=== PATIENT | female | born 1975 | race Caucasian/White ===

== ENCOUNTER 2019-02-13 09:44 | Outpatient (CLI) | payer OTHER ==
--- NOTE | 2019-02-14 08:54 | Mammography Report ---
Reason: SCREENING MAMMOGRAM FOR BREAST CANCER Procedure Date: 02/13/2019 Accession Number: [id number] / [id number] Procedure: LEONARD - Screening Mammo Dig Bilat CPT Code: FULL RESULT: EXAM: Screening Mammo Dig Bilat DATE: 02/13/2019 10:14 AM CLINICAL HISTORY: Screening encounter. History of nulliparity and early menses. Baseline examination. TECHNIQUE: (B) - Bilateral CC, laterally exaggerated CC, MLO views were obtained. COMPARISON: None PARENCHYMAL PATTERN: (D) - The breast(s) demonstrate(s) heterogeneously dense fibroglandular parenchyma. FINDINGS: In the lower outer breast is a hypodense well-circumscribed 3.0 x 2.1 x 2.6 cm mass which is partially obscured, approximately 8.5 cm from the nipple. There is no associated architectural distortion, suspicious calcification. This requires additional spot views, ideally with 3-D mammography as well as ultrasound characterization. There are no suspicious masses, calcifications, or areas of distortion in the left breast. IMPRESSION: Incomplete examination. BI-RADS category 0. RECOMMENDATION: ([facility]) - Additional views using both Mammography and Ultrasound recommended. Right breast lower outer quadrant. BI-RADS CATEGORY: (0) - Incomplete Examination - need additional evaluation. STANDARD QUALIFYING STATEMENTS: 1. This examination was not reviewed with the aid of Computer-Aided Detection (CAD). 2. A negative or benign imaging report should not preclude biopsy if clinically suspicious findings are present. 3. Dense breasts may obscure an underlying neoplasm. 4. This examination was reviewed without the aid of 3D breast imaging (tomosynthesis).
== END 2019-02-13 09:45 | disposition home or self-care (01) ==
LOC: DI 09:44
PROVIDERS: ATTEND Nurse Practitioner
DX: Z12.31 Encounter for screening mammogram for malignant neoplasm of breast (principal); R92.8 Other abnormal and inconclusive findings on diagnostic imaging of breast
CPT/HCPCS: 77067

== ENCOUNTER 2019-02-22 11:01 | Outpatient (CLI) | payer OTHER ==
--- NOTE | 2019-02-22 13:17 | Mammography Report ---
Reason: ABNORMAL MAMMOGRAM Procedure Date: 02/22/2019 Accession Number: [id number] / [id number] Procedure: LEONARD - Diag Special Views Dig RT CPT Code: FULL RESULT: EXAM: Diag Special Views Dig RT, Breast Unilateral Limited DATE: 02/22/2019 11:35 AM CLINICAL HISTORY: Follow-up abnormal mammogram 02/13/2019 COMPARISON: 02/13/2019 MAMMOGRAM: TECHNIQUE: (R) - Right additional spot compression and true lateral views. PARENCHYMAL PATTERN: (D) - The breasts demonstrate heterogeneously dense fibroglandular parenchyma bilaterally. FINDINGS: The previously described density in the posterior lateral right breast persists on additional views. RIGHT BREAST ULTRASOUND: TECHNIQUE: Targeted ultrasound was performed of the right breast in the area of clinical concern at 7 o'clock and 9 cm distance from the nipple. Color Doppler was employed as appropriate. FINDINGS: Corresponding to the mammographic abnormality in the 7:00 position 8 cm from the nipple is a hypoechoic well-circumscribed 2.9 x 1.8 x 0.9 cm avascular mass wider than it is tall most consistent with a fibroadenoma. IMPRESSION: Probably benign finding right breast BI-RADS 3. RECOMMENDATION: Six-month follow-up right breast ultrasound. BI-RADS CATEGORY: (3) - Probably Benign. STANDARD QUALIFYING STATEMENTS: 1. This examination was not reviewed with the aid of Computer-Aided Detection (CAD). 2. A negative or benign imaging report should not preclude biopsy if clinically suspicious findings are present. 3. Dense breasts may obscure an underlying neoplasm. 4. This examination was reviewed without the aid of 3D breast imaging (tomosynthesis).
== END 2019-02-22 11:02 | disposition home or self-care (01) ==
LOC: DI 11:01
PROVIDERS: ATTEND Nurse Practitioner
DX: R92.8 Other abnormal and inconclusive findings on diagnostic imaging of breast (principal)
CPT/HCPCS: 76642

== ENCOUNTER 2019-03-03 13:58 | Outpatient (CLI) | payer OTHER ==
[2019-03-03 14:24] LABS: BASOPHILS % (AUTO) 0.8 %; EOSINOPHILS # (AUTO) 0.1 10^3/uL (0.0-0.7); EOSINOPHILS % (AUTO) 2.6 %; HGB - HEMOGLOBIN 12.4 g/dL (12.0-16.0); LYMPHOCYTES # (AUTO) 2.1 10^3/uL (1.5-3.5); LYMPHOCYTES % (AUTO) 40.7 %; MEAN CORPUSCULAR HEMOGLOBIN 31.1 pg (27.0-31.0); MEAN CORPUSCULAR HGB CONC 32.7 g/dL (32.0-36.0); MEAN PLATELET VOLUME 9.5 fL (7.9-10.8); MONOCYTES # (AUTO) 0.4 10^3/uL (0.0-1.0); MONOCYTES % (AUTO) 8.3 %; NEUTROPHILS # (AUTO) 2.4 10^3/uL (1.5-6.6); NEUTROPHILS % (AUTO) 47.4 %; PLT - PLATELET COUNT 191 10^3/uL (130-450); RED BLOOD COUNT 3.99 10^6/uL (4.20-5.40); RED CELL DISTRIBUTION WIDTH 12.2 % (12.0-15.0); WHITE BLOOD COUNT 5.1 x10^3/uL (4.8-10.8)
[2019-03-03 14:40] LABS: % IRON SATURATION 12 % (20-50); IRON 42 ug/dL (28-170); TOTAL IRON BINDING CAPACITY 353 ug/dL (250-450); TRANSFERRIN 252 mg/dL (192-382)
[2019-03-03 14:52] LABS: THYROID STIMULATING HORMONE 1.15 uIU/mL (0.34-5.60)
[2019-03-03 14:54] LABS: FREE T4 (FREE THYROXINE) 0.85 ng/dL (0.58-1.64)
[2019-03-03 15:00] LABS: FERRITIN 18.7 ng/mL (11.0-306.8)
[2019-03-03 15:03] LABS: FOLATE 17.2 ng/mL (5.90 - >24.8)
== END 2019-03-03 13:59 | disposition home or self-care (01) ==
LOC: LAB 13:58
PROVIDERS: ATTEND Nurse Practitioner
DX: R53.83 Other fatigue (principal); E03.9 Hypothyroidism, unspecified
CPT/HCPCS: 36415; 82306; 82607; 82728; 82746; 83540; 84432; 84439; 84443; 84466; 84481; 85025; 86800

== ENCOUNTER 2019-12-12 12:38 | Outpatient (CLI) | payer OTHER ==
--- NOTE | 2019-12-12 13:24 | SLEEP CARE CONSULTATION ---
Information from patient questionnaire entered by Nereyda Shoemaker. I have reviewed and concur with the information entered by Nereyda Shoemaker. This document represents the service I personally performed and the decisions made by me, Meka Sim MD, [facility]. History of Present Illness Service Date and Time: 12/12/2019 1238 Reason for Visit: New patient Chief Complaint: reports: Unrefreshed sleep, Fatigue Duration of Symptoms: about 3.5 years Usual bedtime: 10:30-11 pm Time it takes to fall asleep: 5 min Snores at night: No Observed to quit breathing while asleep: No Sleeps alone due to snoring: No Number of times waking at night: 3 Reasons for waking at night: reports: Other (sometimes puppy, usually no reason) Toss, Turn, or Twitch while sleeping: Yes Recalls having dreams: Yes Usually gets out of bed at: 8 am Feels refreshed in the morning: No Morning headache: No Sleepy or fatigued during the day: Yes Ever fallen asleep while driving: Yes Takes day naps: No Dreams during day naps: No Prior sleep studies: No Additional HPI information: The patient is here with the complaint of fatigue for the past 3.5 years. She never feels like is getting enough sleep even though she gets 8 to 9 hours of sleep a night on the average. She takes melatonin at night. She reports having non-restorative sleep. She is not sleepy during the day, although she is taking Adderall 20 mg a day for ADD. Her weight crept up 30 lbs this year. Her does not report snoring or pauses in her breathing (he uses CPAP himself). - Parasomnia Symptoms Ever been unable to move upon waking from sleep: No Ever felt weak in the knees when startled or emotional: Yes Bothered by creepy, crawly, restless sensations in legs: No Problems with memory or concentration: Yes Subjective Initial [place] Sleepiness Scale score: 4 (in 2019) Past Medical History Past Medical History: reports: Hypothyroidism, Anxiety, Depression, Attention deficit Social History The patient's occupation is a [employer]. Patient is and lives in [place]. Have you smoked in the past 12 months: No Alcohol use: Yes Alcohol amount and frequency: 1 drink less than 1 time a month Caffeine use: Yes Caffeine amount and frequency: 2 cups of espresso Family History Family history of sleep disordered breathing: Yes Allergies and Home Medications Drug allergies reviewed: Yes Home medication list reviewed: Yes Review of Systems Weight gain over past 5 years: 30 Cardiovascular: denies: high blood pressure, palpitations, chest pain, irregular heart rate or pulse, leg or foot swelling, have to sleep sitting up, other Respiratory: denies: shortness of breath, wheeze, sputum production, chronic cough, other Gastrointestinal: denies: heartburn, difficulty swallowing, nausea, vomitting, diarrhea, abdominal pain, other Urinary: denies: incontinence, frequency, urgency, impotence, other Neurological: reports: headaches Psychiatric: reports: Attention Deficit Hyperactivity, anxiety, depression Ear/Nose/Throat: reports: wisdom teeth removed Endocrine: reports: thyroid disease, sluggishness, unexplained weakness Musculoskeletal: reports: neck pain, back pain, muscle pain or cramping Physical Exam Vital signs obtained and entered by: Exam was not performed in order to comply with the COVID-19 precautions Height: 5 ft 6 in Weight: 185 lb Body Mass Index: 29.8 BMI Classification: Overweight Impression and Plan IMPRESSION: 1. Fatigue, of unclear reason, not associated with excessive daytime sleepiness ([place] Sleepiness Scale score of only 4). A sleep study is the reasonable next step to see if there is/are sleep disrupting condition(s) such was sleep- disordered breathing. Narrow oropharynx and obesity are common predisposing factors for obstructive sleep apnea-hypopnea syndrome. I informed the patient of what the sleep studies involve and after some discussion, she agreed to proceed. Plan: 1. Schedule an in-laboratory polysomnography. 2. Attempt to lose weight. 5. Return in 1 to 2 weeks after the study to discuss results. Time Spent with Patient (minutes): 15
== END 2019-12-12 12:39 | disposition home or self-care (01) ==
LOC: SC 12:38
PROVIDERS: ATTEND Internal Medicine Pulmonary Disease
DX: R53.83 Other fatigue (principal); G47.8 Other sleep disorders; E66.3 Overweight; Z68.29 Body mass index [BMI] 29.0-29.9, adult; F32.9 Major depressive disorder, single episode, unspecified; F81.9 Developmental disorder of scholastic skills, unspecified
CPT/HCPCS: 99203; 99212

== ENCOUNTER 2019-12-30 20:45 | Outpatient (CLI) | payer OTHER | END 2019-12-30 20:46 | disposition home or self-care (01) | LOC: SC 20:45 | PROVIDERS: ATTEND Internal Medicine Pulmonary Disease | DX: G47.8 Other sleep disorders (principal); R53.83 Other fatigue; E66.3 Overweight; Z68.29 Body mass index [BMI] 29.0-29.9, adult; F81.9 Developmental disorder of scholastic skills, unspecified | CPT/HCPCS: 95810 ==

== ENCOUNTER 2020-03-19 08:00 | Outpatient (CLI) | payer OTHER | END 2020-03-19 23:59 | disposition home or self-care (01) | LOC: LAB.R 08:00 | PROVIDERS: ATTEND Nurse Practitioner | DX: R19.7 Diarrhea, unspecified (principal); Z20.828 Contact with and (suspected) exposure to other viral communicable diseases ==

== ENCOUNTER 2020-03-20 08:00 | Outpatient (CLI) | payer OTHER | END 2020-03-20 23:59 | disposition home or self-care (01) | LOC: LAB.R 08:00 | PROVIDERS: ATTEND Nurse Practitioner | DX: R19.7 Diarrhea, unspecified (principal) | CPT/HCPCS: 81599; 87015; 87045; 87046; 87272; 87329; 87427; 87493 ==

== ENCOUNTER 2020-04-02 08:46 | Outpatient (CLI) | payer OTHER ==
[2020-04-02 09:03] LABS: BASOPHILS % (AUTO) 0.5 %; EOSINOPHILS # (AUTO) 0.3 10^3/uL (0.0-0.7); EOSINOPHILS % (AUTO) 8.7 %; HGB - HEMOGLOBIN 13.4 g/dL (12.0-16.0); LYMPHOCYTES # (AUTO) 1.3 10^3/uL (1.5-3.5); LYMPHOCYTES % (AUTO) 32.4 %; MEAN CORPUSCULAR HEMOGLOBIN 31.4 pg (27.0-31.0); MEAN CORPUSCULAR HGB CONC 33.6 g/dL (32.0-36.0); MEAN CORPUSCULAR VOLUME 93.4 fL (81.0-99.0); MEAN PLATELET VOLUME 9.7 fL (7.9-10.8); MONOCYTES # (AUTO) 0.3 10^3/uL (0.0-1.0); MONOCYTES % (AUTO) 7.4 %; NEUTROPHILS % (AUTO) 50.7 %; PLT - PLATELET COUNT 243 10^3/uL (130-450); RED BLOOD COUNT 4.27 10^6/uL (4.20-5.40); RED CELL DISTRIBUTION WIDTH 12.3 % (12.0-15.0); WHITE BLOOD COUNT 3.9 x10^3/uL (4.8-10.8)
[2020-04-02 09:23] LABS: ALBUMIN 4.2 g/dL (3.2-5.5); ALBUMIN/GLOBULIN RATIO 1.7 (1.0-2.2); ALKALINE PHOSPHATASE 51 IU/L (42-121); ALT ALANINE AMINOTRANSFERASE 21 IU/L (10-60); AST ASPARTATE AMINOTRANSFERASE 20 IU/L (10-42); BILIRUBIN,TOTAL 0.8 mg/dL (0.2-1.0); BUN - BLOOD UREA NITROGEN 10 mg/dL (6-20); CALCIUM 8.8 mg/dL (8.5-10.3); CARBON DIOXIDE - CO2 26 mmol/L (21-32); CHLORIDE 104 mmol/L (101-111); CHOL/HDL RATIO 2.7 (<4.4); CHOLESTEROL 184 mg/dL; CREATININE 0.6 mg/dL (0.4-1.0); GLUCOSE 98 mg/dL (70-100); HDL CHOLESTEROL 68 mg/dL; LDL CHOLESTEROL,CALCULATED 108 mg/dL; LDL/HDL RATIO 1.6 (<4.4); SODIUM 138 mmol/L (135-145); TOTAL PROTEIN 6.7 g/dL (6.7-8.2); VLDL CHOLESTEROL 8 mg/dL
[2020-04-02 09:42] LABS: CRP - C-REACTIVE PROTEIN < 1.0 mg/dL (0-1.0)
== END 2020-04-02 08:47 | disposition home or self-care (01) ==
LOC: LAB 08:46
PROVIDERS: ATTEND Nurse Practitioner
DX: Z00.00 Encounter for general adult medical examination without abnormal findings (principal); M25.50 Pain in unspecified joint; R53.83 Other fatigue; E03.9 Hypothyroidism, unspecified
CPT/HCPCS: 36415; 80050; 80061; 82306; 82607; 82746; 83721; 85651; 86140

== ENCOUNTER 2021-02-22 10:55 | Emergency (ER) | payer OTHER ==
--- NOTE | 2021-02-22 11:56 | ED Physician Documentation ---
PD HPI MHE - Stated complaint Stated Complaint: FEELING DEPRESSED - Chief complaint Chief Complaint: MHE - History obtained from History obtained from: Patient - History of Present Illness Primary symptom: Depression. No: Suicidal ideation, Psychosis Timing - onset: How many weeks ago (1) Contributing factors: Other (her pet goat was sick and had to be euthanized a week ago, which precipitated her chronic depression, which had been well treated with Pristiq the past 3 years. No other contibuting factors. Has had some diarrhea the past week but not feeling ill overall.) Similar symptoms before: Has not had sx before (she states she has not felt this deeply depressed for many years.) Recently seen: Not recently seen Review of Systems Constitutional: denies: Fever, Chills Nose: denies: Rhinorrhea / runny nose, Congestion Throat: denies: Sore throat Cardiac: denies: Chest pain / pressure Respiratory: denies: Cough GI: reports: Diarrhea (has had soft to watery stools 2-3 daily for the past week. No noted unusual foods. No abd pains nor vomiting. No blood in stool. No recnt antibiotics.). denies: Abdominal Pain, Nausea, Vomiting Neurologic: denies: Near syncope, Altered mental status, Headache Psychiatric: reports: Depressed, Insomnia (this past week). denies: Suicidal, H omicidal, Anxiety Endocrine: denies: Weight loss, Weight gain PD PAST MEDICAL HISTORY - Past Medical History Cardiovascular: None Respiratory: None Neuro: None Endocrine/Autoimmune: HyPOthyroidism Psych: Depression, ADD/ADHD Derm: None - Past Surgical History Past Surgical History: Yes - Present Medications Home Medications: Ambulatory Orders Medication Instructions Recorded Confirmed Azithromycin [Zithromax] 500 mg PO DAILY #14 tablet 05/15/16 Dextroamphetamine/Amphetamine 5 mg DAILY 05/15/16 05/15/16 [Adderall 15 mg Tablet] Levothyroxine [Synthroid] 50 mcg PO QDAC 05/15/16 05/15/16 traZODone [Desyrel] 50 mg PO HS #5 tablet 02/22/21 - Allergies Allergies/Adverse Reactions: Allergies Allergy/AdvReac Type Severity Reaction Status Date / Time Penicillins Allergy Unknown Verified 02/22/21 11:24 - Social History Does the pt smoke?: No Smoking Status: Never smoker Does the pt drink ETOH?: No Does the pt have substance abuse?: No - Immunizations Immunizations are current?: Yes PD ED PE NORMAL - Vitals Vital signs reviewed: Yes - General General: Alert and oriented X 3, No acute distress, Well developed/nourished - Neck Neck: Supple, no meningeal sign, No adenopathy - Cardiac Cardiac: RRR, No murmur - Respiratory Respiratory: Clear bilaterally - Abdomen Abdomen: Soft, Non tender - Derm Derm: Normal color, Warm and dry - Extremities Extremities: No edema, No calf tenderness / cord - Neuro Neuro: Alert and oriented X 3, No motor deficit, Normal speech Eye Opening: Spontaneous Motor: Obeys Commands Verbal: Oriented GCS Score: 15 - Psych Psych: No: Normal mood (depressed and somewhat flat. ) Results - Vitals Vitals: Vital Signs - 24 hr 02/22/21 02/22/21 11:18 14:59 Temperature 36.8 C 36.7 C Heart Rate 78 80 Respiratory 15 14 Rate Blood Pressure 136/71 H 128/83 H O2 Saturation 100 100 Oxygen O2 Source Room air - Labs Labs: Laboratory Tests 02/22/21 02/22/21 02/22/21 11:55 11:55 11:55 WBC 5.8 RBC 4.27 Hgb 13.3 Hct 39.5 MCV 92.5 MCH 31.1 H MCHC 33.7 RDW 11.8 L Plt Count 212 MPV 9.3 Neut # (Auto) 4.4 Lymph # (Auto) 0.8 L [place] # (Auto) 0.4 Eos # (Auto) 0.1 Baso # (Auto) 0.0 Absolute Nucleated RBC 0.00 Nucleated RBC % 0.0 Sodium 137 Potassium 4.7 Chloride 104 Carbon Dioxide 26 Anion Gap 7.0 BUN 10 Creatinine 0.6 Estimated GFR (MDRD) 109 Glucose 116 H Calcium 9.2 Total Bilirubin 0.7 AST 15 ALT 15 Alkaline Phosphatase 45 Total Protein 6.5 L Albumin 3.9 Globulin 2.6 Albumin/Globulin Ratio 1.5 Lipase 24 TSH 1.76 Nasal Adenovirus (PCR) Nasal B. parapertussis DNA (PCR) Nasal Coronavir 229E PCR Nasal Coronavir HKU1 PCR Nasal Coronavir NL63 PCR Nasal Coronavir OC43 PCR Nasal Enterovir/Rhinovir PCR Nasal Influenza B PCR Nasal Influenza A PCR Nasal Parainfluen 1 PCR Nasal Parainfluen 2 PCR Nasal Parainfluen 3 PCR Nasal Parainfluen 4 PCR Nasal RSV (PCR) Nasal B.pertussis DNA PCR Nasal C.pneumoniae (PCR) Anoop Human Metapneumo PCR Nasal M.pneumoniae (PCR) Nasal SARS-CoV-2 (PCR) Salicylates < 6.0 Acetaminophen < 10 L Ethyl Alcohol < 5.0 02/22/21 14:15 WBC RBC Hgb Hct MCV MCH MCHC RDW Plt Count MPV Neut # (Auto) Lymph # (Auto) [place] # (Auto) Eos # (Auto) Baso # (Auto) Absolute Nucleated RBC Nucleated RBC % Sodium Potassium Chloride Carbon Dioxide Anion Gap BUN Creatinine Estimated GFR (MDRD) Glucose Calcium Total Bilirubin AST ALT Alkaline Phosphatase Total Protein Albumin Globulin Albumin/Globulin Ratio Lipase TSH Nasal Adenovirus (PCR) NOT DETECTED Nasal B. parapertussis DNA (PCR) NOT DETECTED Nasal Coronavir 229E PCR NOT DETECTED Nasal Coronavir HKU1 PCR NOT DETECTED Nasal Coronavir NL63 PCR NOT DETECTED Nasal Coronavir OC43 PCR NOT DETECTED Nasal Enterovir/Rhinovir PCR NOT DETECTED Nasal Influenza B PCR NOT DETECTED Nasal Influenza A PCR NOT DETECTED Nasal Parainfluen 1 PCR NOT DETECTED Nasal Parainfluen 2 PCR NOT DETECTED Nasal Parainfluen 3 PCR NOT DETECTED Nasal Parainfluen 4 PCR NOT DETECTED Nasal RSV (PCR) NOT DETECTED Nasal B.pertussis DNA PCR NOT DETECTED Nasal C.pneumoniae (PCR) NOT DETECTED Anoop Human Metapneumo PCR NOT DETECTED Nasal M.pneumoniae (PCR) NOT DETECTED Nasal SARS-CoV-2 (PCR) NOT DETECTED Salicylates Acetaminophen Ethyl Alcohol PD MEDICAL DECISION MAKING - ED course Complexity details: reviewed results (normal labs. She did not have urge for BM here, so did not do stool testing. ), re-evaluated patient (she states feeling moderately better after the Ketamine, 0.4 mg/kg IV over 40 minutes. She feels she can tolerate the symptoms right now. Has counseling appt set for Wednesday (3 days from now). ), considered differential (history of stable depression. Has added grief reaction this week due to pet dying. No other apparent triggers. ), d/w patient, d/w contamination consultant (Social Work talked with patient. Both did not feel hospitalization would be helpful. I discussed with patient trying IV dose Ketamine here and meds to help with sleep, as she has not slept well this week. ) Departure - Departure Disposition: 01 Home, Self Care Clinical Impression: Grief reaction Depression Qualifiers: Depression Type: major depressive disorder Major depression recurrence: unspecified whether recurrent Active/Remission status: currently active Major depression episode severity: mild Qualified Code(s): F32.0 - Major depressive disorder, single episode, mild Diarrhea Qualifiers: Diarrhea type: unspecified type Qualified Code(s): R19.7 - Diarrhea, unspecified Condition: Stable Record reviewed to determine appropriate education?: Yes Instructions: ED Stress React, ED Depression Prescriptions: traZODone [Desyrel] 50 mg PO HS #5 tablet Comments: Follow-up with your counselor on Wednesday as planned. Stay well-hydrated. Continue your usual Pristiq antidepressant. You can add medication to help with sleep, [id number] Benadryl or I wrote a small prescription for a sleep aid called trazodone to take 1/2 to 1 tablet at night if needed. The counseling will be useful to help with the grief reaction. Follow-up with your primary care if not having improved symptoms over the next week or 2 to discuss other longer-term medications or medication changes. Regarding your diarrhea, you can use [id number] Imodium every 6 hours if needed for the diarrhea. Follow-up with your primary care if it is not improved over the next few days for potential stool testing and culture for infectious cause. I transmitted your prescription to [facility] in [place]. Discharge Date/Time: 02/22/21 15:01
[2021-02-22 12:06] LABS: BASOPHILS % (AUTO) 0.5 %; EOSINOPHILS # (AUTO) 0.1 10^3/uL (0.0-0.7); EOSINOPHILS % (AUTO) 1.9 %; HCT - HEMATOCRIT 39.5 % (37.0-47.0); HGB - HEMOGLOBIN 13.3 g/dL (12.0-16.0); LYMPHOCYTES # (AUTO) 0.8 10^3/uL (1.5-3.5); LYMPHOCYTES % (AUTO) 14.5 %; MEAN CORPUSCULAR HEMOGLOBIN 31.1 pg (27.0-31.0); MEAN CORPUSCULAR HGB CONC 33.7 g/dL (32.0-36.0); MEAN CORPUSCULAR VOLUME 92.5 fL (81.0-99.0); MEAN PLATELET VOLUME 9.3 fL (7.9-10.8); MONOCYTES # (AUTO) 0.4 10^3/uL (0.0-1.0); MONOCYTES % (AUTO) 6.4 %; NEUTROPHILS # (AUTO) 4.4 10^3/uL (1.5-6.6); NEUTROPHILS % (AUTO) 76.4 %; PLT - PLATELET COUNT 212 10^3/uL (130-450); RED BLOOD COUNT 4.27 10^6/uL (4.20-5.40); RED CELL DISTRIBUTION WIDTH 11.8 % (12.0-15.0); WHITE BLOOD COUNT 5.8 x10^3/uL (4.8-10.8)
[2021-02-22 12:27] LABS: ACETAMINOPHEN < 10 ug/mL (10-30); ALBUMIN 3.9 g/dL (3.2-5.5); ALBUMIN/GLOBULIN RATIO 1.5 (1.0-2.2); ALKALINE PHOSPHATASE 45 IU/L (42-121); ALT ALANINE AMINOTRANSFERASE 15 IU/L (10-60); AST ASPARTATE AMINOTRANSFERASE 15 IU/L (10-42); BILIRUBIN,TOTAL 0.7 mg/dL (0.2-1.0); BUN - BLOOD UREA NITROGEN 10 mg/dL (6-20); CALCIUM 9.2 mg/dL (8.5-10.3); CARBON DIOXIDE - CO2 26 mmol/L (21-32); CHLORIDE 104 mmol/L (101-111); CREATININE 0.6 mg/dL (0.4-1.0); ETOH - ETHANOL < 5.0 mg/dL; GFR - MDRD 109 (>89); GLUCOSE 116 mg/dL (70-100); LIPASE 24 U/L (22-51); POTASSIUM 4.7 mmol/L (3.5-5.0); SALICYLATE < 6.0 mg/dL; SODIUM 137 mmol/L (135-145); TOTAL PROTEIN 6.5 g/dL (6.7-8.2)
[2021-02-22] MEDS ORDERED: SODIUM CHLORIDE 0.9% IV STA (13:07)
[2021-02-22] MEDS ORDERED: KETAMINE IV STA (13:07)
[2021-02-22] MEDS ORDERED: KETOROLAC 15 MG/ML VIAL IVP STA (13:40)
[2021-02-22 15:00] VITALS: BP 128/83
[2021-02-22 15:23] LABS: B. PARAPERTUSSIS- RESP PCR PAN NOT DETECTED; B. PERTUSSIS- RESP PCR PANEL NOT DETECTED; C. PNEUMONIAE- RESP PCR PANEL NOT DETECTED; CORONAVIRUS 229E-RESP PCR NOT DETECTED; CORONAVIRUS HKU1-RESP PCR NOT DETECTED; CORONAVIRUS NL63-RESP PCR NOT DETECTED; CORONAVIRUS OC43-RESP PCR NOT DETECTED; HUMAN METAPNEUMOVIRUS NOT DETECTED; INFLUENZA A- RESP PCR PANEL NOT DETECTED; INFLUENZA B - RESP PCR PANEL NOT DETECTED; M. PNEUMONIAE- RESP PCR PANEL NOT DETECTED; PARAINFLUENZA VIRUS 1 NOT DETECTED; PARAINFLUENZA VIRUS 2 NOT DETECTED; PARAINFLUENZA VIRUS 3 NOT DETECTED; PARAINFLUENZA VIRUS 4 NOT DETECTED; RHINOVIRUS/ENTEROVIRUS NOT DETECTED; RSV- RESP PCR PANEL NOT DETECTED; SARS-CoV-2 -RESP PCR PANEL NOT DETECTED
== END 2021-02-22 15:01 | disposition home or self-care (01) ==
LOC: ED 10:55
DX: F43.21 Adjustment disorder with depressed mood (principal); F32.0 Major depressive disorder, single episode, mild; G47.00 Insomnia, unspecified; R19.7 Diarrhea, unspecified; Z20.822 Contact with and (suspected) exposure to COVID-19
CPT/HCPCS: 0202U; 36415; 80053; 80307; 80320; 80329; 83690; 84443; 85025; 96365; 96375; 99283; 99284

== ENCOUNTER 2021-04-01 08:42 | Outpatient (CLI) | payer OTHER ==
[2021-04-01 08:58] LABS: BASOPHILS % (AUTO) 0.7 %; EOSINOPHILS # (AUTO) 0.1 10^3/uL (0.0-0.7); EOSINOPHILS % (AUTO) 2.4 %; HCT - HEMATOCRIT 40.5 % (37.0-47.0); HGB - HEMOGLOBIN 13.3 g/dL (12.0-16.0); LYMPHOCYTES # (AUTO) 1.5 10^3/uL (1.5-3.5); LYMPHOCYTES % (AUTO) 36.9 %; MEAN CORPUSCULAR HEMOGLOBIN 30.9 pg (27.0-31.0); MEAN CORPUSCULAR HGB CONC 32.8 g/dL (32.0-36.0); MEAN PLATELET VOLUME 9.2 fL (7.9-10.8); MONOCYTES # (AUTO) 0.4 10^3/uL (0.0-1.0); MONOCYTES % (AUTO) 8.5 %; NEUTROPHILS # (AUTO) 2.1 10^3/uL (1.5-6.6); NEUTROPHILS % (AUTO) 51.5 %; PLT - PLATELET COUNT 227 10^3/uL (130-450); RED BLOOD COUNT 4.31 10^6/uL (4.20-5.40); RED CELL DISTRIBUTION WIDTH 11.9 % (12.0-15.0); WHITE BLOOD COUNT 4.1 x10^3/uL (4.8-10.8)
[2021-04-01 09:09] LABS: BILIRUBIN,URINE NEGATIVE (NEGATIVE); GLUCOSE, URINE (UA) NEGATIVE (NEGATIVE); KETONES,URINE (UA) NEGATIVE (NEGATIVE); LEUKOCYTE ESTERASE, URINE NEGATIVE (NEGATIVE); NITRITE,URINE NEGATIVE (NEGATIVE); OCCULT BLOOD,URINE NEGATIVE (NEGATIVE); PROTEIN,URINE NEGATIVE (NEGATIVE); UROBILINOGEN,URINE 0.2 (NORMAL) E.U./dL (NORMAL)
[2021-04-01 09:10] LABS: BACTERIA,URINE Rare /HPF (None Seen); CLARITY,URINE CLEAR (CLEAR); RBC,URINE 0-5 /HPF (0-5); SQUAMOUS EPITHELIAL CELL,UR RARE Squamous (<= Few); WBC,URINE 0-3 /HPF (0-5)
[2021-04-01 09:17] LABS: ALBUMIN 4.4 g/dL (3.2-5.5); ALBUMIN/GLOBULIN RATIO 1.8 (1.0-2.2); ALKALINE PHOSPHATASE 49 IU/L (42-121); ALT ALANINE AMINOTRANSFERASE 16 IU/L (10-60); AST ASPARTATE AMINOTRANSFERASE 17 IU/L (10-42); BILIRUBIN,TOTAL 0.4 mg/dL (0.2-1.0); BUN - BLOOD UREA NITROGEN 15 mg/dL (6-20); CALCIUM 8.8 mg/dL (8.5-10.3); CARBON DIOXIDE - CO2 27 mmol/L (21-32); CHLORIDE 104 mmol/L (101-111); CHOLESTEROL 217 mg/dL; CREATININE 0.8 mg/dL (0.4-1.0); GFR - MDRD 78 (>89); GLUCOSE 96 mg/dL (70-100); HDL CHOLESTEROL 72 mg/dL; LDL CHOLESTEROL,CALCULATED 132 mg/dL; LDL/HDL RATIO 1.8 (<4.4); POTASSIUM 4.2 mmol/L (3.5-5.0); SODIUM 139 mmol/L (135-145); TOTAL PROTEIN 6.8 g/dL (6.7-8.2); TRIGLYCERIDES 66 mg/dL; VLDL CHOLESTEROL 13 mg/dL
[2021-04-01 09:28] LABS: THYROID STIMULATING HORMONE 1.66 uIU/mL (0.34-5.60)
== END 2021-04-01 08:43 | disposition home or self-care (01) ==
LOC: LAB 08:42
PROVIDERS: ATTEND Nurse Practitioner
DX: R53.83 Other fatigue (principal); Z13.220 Encounter for screening for lipoid disorders; R92.8 Other abnormal and inconclusive findings on diagnostic imaging of breast
CPT/HCPCS: 36415; 80050; 80061; 81001; 83721; 87086